=== PATIENT | male | born 1990 | race Caucasian/White ===

== ENCOUNTER 2016-08-07 13:27 | Emergency (ER) | payer OTHER ==
[2016-08-07 17:31] VITALS: BP 131/54
--- NOTE | 2016-08-07 18:03 | UC ---
Throat Pain/Nasal Ezequiel HPI - HPI Summary HPI Summary: 25 yo male with sore throat and fatigue/fever for days. Similar symptoms 2 weeks ago with (-) strep and flu test - History of Current Complaint Chief Complaint: UCGeneralIllness Stated Complaint: THROAT,FEVER,[place] Time Seen by Provider: 08/07/16 17:12 Hx Obtained From: Patient Onset/Duration: Gradual Onset, Lasting Days Severity: Moderate Pain Intensity: 6 Pain Scale Used: 0-10 Numeric Associated Signs & Symptoms: Positive: Fever - Allergies/Home Medications Allergies/Adverse Reactions: Allergies Allergy/AdvReac Type Severity Reaction Status Date / Time No Known Allergies Allergy Verified 08/07/16 17:31 Home Medications: Home Medications Acetaminophen TAB* [Tylenol TAB*] 650 mg PO Q4H PRN 08/07/16 [History Confirmed 08/07/16] PMH/Surg Hx/FS Hx/Imm Hx Previously Healthy: Yes Endocrine History Of: Denies: Diabetes, Hyperthyroidism, Hypothyroidism Cardiovascular History Of: Denies: Cardiac Disorders, Hypertension, Pacemaker/ICD Respiratory History Of: Denies: Asthma GI/ History Of: Denies: Gastroesophageal Reflux Psychological History Of: Denies: Anxiety, Depression - Surgical History Surgical History: None - Family History Known Family History: Positive: Hypertension - Social History Alcohol Use: Rare Substance Use Type: None, Marijuana Smoking Status (MU): Never Smoked Tobacco Type: Cigarettes - Immunization History Most Recent Tetanus Shot: UNSURE Review of Systems Constitutional: Fever Skin: Negative Eyes: Negative ENT: Sore Throat Respiratory: Negative Cardiovascular: Negative Gastrointestinal: Negative Genitourinary: Negative Motor: Negative Neurovascular: Negative Musculoskeletal: Negative Neurological: Headache Psychological: Negative All Other Systems Reviewed And Are Negative: Yes Physical Exam Triage Information Reviewed: Yes Appearance: Well-Appearing, No Pain Distress, Well-Nourished Vital Signs: Initial Vital Signs Temp 99.4 F 08/07/16 17:23 Pulse 94 08/07/16 17:23 Resp 16 08/07/16 17:23 BP 131/54 08/07/16 17:23 Pulse Ox 97 08/07/16 17:23 Vital Signs Reviewed: Yes Eyes: Positive: Conjunctiva Clear ENT: Negative: Nasal congestion, Nasal drainage, Tonsillar swelling, Tonsillar exudate, Trismus, Muffled/hoarse voice Dental: Negative: Gross Decay/Caries @, Dental Fracture @, Abscess @ Neck: Negative: Supple, Nontender, No Lymphadenopathy Respiratory: Negative: Lungs clear, Normal breath sounds, No respiratory distress, No accessory muscle use Cardiovascular: Positive: RRR, No Murmur Abdomen Description: Positive: No Organomegaly, Soft, Bruit Musculoskeletal: Negative: Strength Intact, ROM Intact, No Edema Neurological: Positive: Alert Psychological Exam: Normal Skin Exam: Normal Skin: Positive: rashes Throat Pain/Nasal Course/Dx - Differential Dx/Diagnosis Provider Diagnoses: acute tonsillitis. suspect MONO Discharge - Discharge Plan Condition: Stable Disposition: HOME Prescriptions: Prednisone 60 mg PO DAILY #6 tab Patient Education Materials: Mononucleosis (ED), Tonsillitis (ED) Referrals: Non Staff,Doctor [Primary Care Provider] - 4 Days (recheck in 4-7 days if not better) Additional Instructions: rest fluids tylenol test for mono pending
[2016-08-07] MEDS ORDERED: predniSONE TAB* 20 MG PO ONE (18:42)
[2016-08-08 10:40] LABS: EBV Response NO
[2016-08-08 10:50] LABS: Hematocrit 42 % (42-52); Hemoglobin 14.3 g/dl (14.0-18.0); Mean Corpuscular HGB Conc 34 g/dl (31-36); Mean Corpuscular Hemoglobin 31 pg (27-31); Mean Corpuscular Volume 90 fL (80-94); Mean Platelet Volume 10 um3 (7.4-10.4); Red Blood Count 4.63 10^6/ul (4.0-5.4); Red Cell Distribution Width 12 % (10.5-15); White Blood Count 27.4 10^3/ul (3.5-10.8)
[2016-08-08 10:53] LABS: Add Diff/Slide Review? Slide Review Added; Comments Flag Yes
[2016-08-08 11:04] LABS: Manual Entry Verification DOM0004; Mono Internal Control QC Line Present
== END 2016-08-07 18:58 | disposition home or self-care (01) ==
LOC: UCCORT 13:27
DX: J03.90 Acute tonsillitis, unspecified (principal)
CPT/HCPCS: 36415; 85025; 86308; 87651; 99212; G0463; J7512